=== PATIENT | male | born 1955 | race Caucasian/White ===

== ENCOUNTER → 2020-01-13 | Day surgery (SDC) | payer BC ==
[~2020-01-13] MED LIST: ACETAMINOPHEN 325 MG TABLET PO PRN; ALBUTEROL SULFATE 2.5 MG/3 ML NEBU. NEB PRN; ATOR10TA60 PO; ATROPINE 0.5 MG/5 ML DISP.SYRIN. IV PRN; IV RINGERS SOLUTION,LACTATED 1,000 ML IV SCH; ONDANSETRON PF 4 MG/2 ML VIAL. IV PRN; PHENOL ORAL SPRAY 177ML BOTTLE. MM PRN; PROPOFOL 60 ML IV ONE; TAMS0.4C97 PO; diphenhydrAMINE 50 MG/ML VIAL IV PRN
[2020-01-13 13:14] VITALS: BP 117/73
--- NOTE | 2020-01-15 14:07 | PATHOLOGY ---
[facility] Accession Number: [id number] . 01 Material submitted: . hepatic flexure - HEPATIC FLEXURE MASS . 01 Clinical history: . Screening . 02 Diagnosis: Colon biopsies, hepatic flexure mass: - ADENOCARCINOMA, MODERATELY-WELL DIFFERENTIATED. SEE COMMENT. . (JPM:allison; 01/15/2020) S 01/15/2020 1346 Local . 02 Comment: Sections of the hepatic flexure mass biopsy focally reveal irregular malignant glands which infiltrate a reactive desmoplastic stroma. The neoplasm appears to be arising within a tubular adenoma showing high grade dysplasia. The morphologic findings are supportive of the diagnosis of a moderately-well differentiated colorectal adenocarcinoma. The case is also examined by Dr. Contreras, who concurs with the diagnosis. (JPM:allison; 01/15/2020) . 02 Electronically signed: . Delvis Bennett MD, Pathologist NPI- [id number] . 01 Gross description: . The specimen is received in formalin, labeled "Lan Prince ., hepatic flexure mass". Received are six segments of pale grigsby soft tissue ranging in size from 0.2 to 1.1 cm in maximum dimensions. The surgical margin of the larger segment is inked and the segment is trisected. The specimen is submitted entirely in cassette A1 and A2. (CAA; 01/14/2020) QAC/QAC 01/14/2020 1803 Local . 02 Pathologist provided ICD-10: C18.3 . 02 CPT . 659566 Specimen Comment: A courtesy copy of this report has been sent to [phone] Specimen Comment: [phone] Specimen Comment: Report sent to / DR LUGO Performed at: 01 [facility] [address] [facility] [address], [place], [place] [id number] MD Herbert Nevarez MD Phone: [phone] Performed at: 02 [facility] [address] [place], [place] [id number] MD Delvis Bennett MD Phone: [phone]
== END ==
LOC: SURG 10:14
PROVIDERS: ATTEND Emergency Medicine
DX: Z12.11 Encounter for screening for malignant neoplasm of colon (principal); C18.3 Malignant neoplasm of hepatic flexure; J45.909 Unspecified asthma, uncomplicated; N40.0 Benign prostatic hyperplasia without lower urinary tract symptoms
CPT/HCPCS: 45380; 45381; 45385; 88305; J2704; J7120

== ENCOUNTER → 2021-02-04 | Outpatient (CLI) | payer BC ==
[2020-01-13 13:14] VITALS: BP 117/73
[~2021-02-04] MED LIST changes: -ACETAMINOPHEN 325 MG TABLET PO PRN; -ALBUTEROL SULFATE 2.5 MG/3 ML NEBU. NEB PRN; -ATROPINE 0.5 MG/5 ML DISP.SYRIN. IV PRN; -IV RINGERS SOLUTION,LACTATED 1,000 ML IV SCH; -ONDANSETRON PF 4 MG/2 ML VIAL. IV PRN; -PHENOL ORAL SPRAY 177ML BOTTLE. MM PRN; -PROPOFOL 60 ML IV ONE; -diphenhydrAMINE 50 MG/ML VIAL IV PRN
== END ==
LOC: LAB 07:30
PROVIDERS: ATTEND Nurse Anesthetist, Certified Registered
DX: Z01.812 Encounter for preprocedural laboratory examination (principal); Z85.038 Personal history of other malignant neoplasm of large intestine; Z20.822 Contact with and (suspected) exposure to COVID-19
CPT/HCPCS: U0003

== ENCOUNTER → 2021-02-08 | Day surgery (SDC) | payer BC ==
[~2021-02-08] MED LIST changes: +IPRATRPIUM/ALBUTEROL 0.5/2.5MG 3 ML NEBU. NEB PRN; +IV RINGERS SOLUTION,LACTATED 1,000 ML IV SCH; +LIDOCAINE 2% PF 5 ML VIAL. ONE; +MIDAZOLAM HCL PF 2 MG/2 ML VIAL. IV ONE; +ONDANSETRON PF 4 MG/2 ML VIAL. IV PRN; +PROPOFOL 10,000 MCG/ML (20ML) VIAL IV ONE
[2021-02-08 12:08] VITALS: BP 112/69
--- NOTE | 2021-02-14 18:13 | PATHOLOGY ---
[facility] Accession Number: [id number] . 01 Material submitted: . colon - TRANSVERSE COLON POLYP BIOPSY. Modifiers: transverse . 01 Clinical history: . PRE-OPERATIVE DIAGNOSIS: PREVIOUS HISTORY OF COLON CANCER OPERATIVE PROCEDURE: COLONOSCOPY . 02 Diagnosis: Colon biopsy, transverse colon polyp: - Tubular adenoma. - Hyperplastic mucosal-associated lymphoid aggregate. (JPM:allison; 02/14/2021) S 02/14/2021 1255 Local . 02 Comment: There is no high grade dysplasia or evidence of malignancy. (JPM:allison; 02/14/2021) . 02 Electronically signed: . Delvis Bennett MD, Pathologist NPI- [id number] . 01 Gross description: . The specimen is received in formalin, labeled "Lan Prince , transverse colon polyp biopsy". Received is a segment of pale grigsby tissue measuring 0.3 cm in maximum dimensions. The specimen is submitted entirely in A1. ([facility]; 02/11/2021) QAC/QAC 02/11/2021 1551 Local . 02 Microscopic: . . . 02 Pathologist provided ICD-10: D12.3 . 02 CPT . 288274 Specimen Comment: A courtesy copy of this report has been sent to [phone] Specimen Comment: Report sent to Specimen Comment: A duplicate report has been generated due to demographic updates. Performed at: 01 [facility] [address] [id number] MD Abelino Perez MD Phone: [phone] Performed at: 02 [facility] [address] [place], [place] [id number] MD Delvis Bennett MD Phone: [phone]
== END | disposition home or self-care (01) ==
LOC: SURG 10:05
PROVIDERS: ATTEND Emergency Medicine
DX: Z08 Encounter for follow-up examination after completed treatment for malignant neoplasm (principal); D12.3 Benign neoplasm of transverse colon; K63.89 Other specified diseases of intestine; I10 Essential (primary) hypertension; Z98.0 Intestinal bypass and anastomosis status; Z85.038 Personal history of other malignant neoplasm of large intestine; Z79.899 Other long term (current) drug therapy
CPT/HCPCS: 45380; 88305; J2001; J2704; J7120